=== PATIENT | male | born 2000 | race Caucasian/White ===

== ENCOUNTER 2021-04-03 15:32 | Emergency (ER) | payer BC, SELFPAY ==
--- NOTE | ~2021-04-03 | XR_ITS ---
EXAMINATION: XR chest 1V DATE: 04/03/2021 17:08 INDICATION: Cough. COVID-19 pneumonia. TECHNIQUE: A single frontal view of the chest was obtained. COMPARISON: None. FINDINGS: There are mild airspace opacities in the lower lung zones. No pleural effusion or pneumotho rax. The heart size is normal. IMPRESSION: 1. Mild airspace opacities in the lower lung zones, consistent with pneumonia. Reviewed, dictated and finalized at location A.
[2021-04-03 16:45] VITALS: BP 117/75; PULSE 54; RESP 16; TEMP 36.9; O2SAT 100
--- NOTE | 2021-04-03 16:46 | ECG_ITS ---
Measurements Intervals [place] Rate: 47 P: 67 NV: 155 QRS: 86 QRSD: 92 T: 56 QT: 451 QTc: 400 Interpretive Statements SINUS BRADYCARDIA INCOMPLETE RIGHT BUNDLE BRANCH BLOCK BASELINE ARTIFACT- I, II, AVR, AVL, AVF, V4-V6 ABNORMAL ECG Electronically Signed On 04-03-2021 19:41:33 CDT by Salvador Catalan D.O.
[2021-04-03 17:01] VITALS: O2SAT 98
[2021-04-03 17:03] LABS: Basophils Percent Auto 0.4 % (0.2-1.2); Eosinophils Absolute Auto 0.1 K/mm3 (0-0.3); Eosinophils Percent Auto 2.2 % (0-4.4); Hematocrit 43.9 % (42.0-52.0); Hemoglobin 14.7 g/dL (14.0-18.0); Lymphocytes Absolute Auto 1.32 K/mm3 (0.9-3.2); Lymphocytes Percent Auto 48.9 % (18.3-44.2); Mean Corpuscular HGB Conc 33.5 g/dl (32-36); Mean Corpuscular Hemoglobin 29.8 pg (26-34); Mean Platelet Volume 9.5 fl (7.4-10.4); Monocytes Absolute Auto 0.3 K/mm3 (0.1-0.6); Monocytes Percent Auto 12.6 % (2.6-8.5); Neutrophils Percent Auto 35.9 % (45.5-73.1); Platelet Count Result 181 k/mm3 (150-375); Red Blood Count 4.93 M/mm3 (4.6-6.20); Red Cell Distribution Width 12.3 % (11.5-14.5); White Blood Count 2.7 K/mm3 (4.5-10.0)
[2021-04-03 17:15] LABS: Alanine Aminotransferase 23 U/L (4-50); Albumin Level 4.2 g/dL (3.5-5.1); Alkaline Phosphatase 55 U/L (38-126); Anion Gap 8 mmol/L (8-16); Aspartate Amino Transferase 36 U/L (17-59); Bilirubin,Total 0.5 mg/dL (0.2-1.3); Blood Urea Nitrogen 8 mg/dL (9-20); Calcium 9.1 mg/dL (8.4-10.2); Carbon Dioxide 27 mmol/L (22-30); Chloride 106 mmol/L (98-107); Estimated CRCL calculation 142 ml/min; Estimated Glomerular Filt Rate > 60; Glucose 90 mg/dL (65-110); Potassium 4.4 mmol/L (3.4-5.0); Sodium 141 mmol/L (137-145)
[2021-04-03 18:04] VITALS: BP 122/70; PULSE 57; RESP 20; O2SAT 100
[2021-04-03 20:15] VITALS: BP 124/70; PULSE 58; RESP 18; O2SAT 100
--- NOTE | 2021-04-03 21:12 | ED.GENADULT ---
HPI - General Adult General Chief complaint: Shortness of Breath/Dyspnea Stated complaint: covid positive, chest pain Time Seen by Provider: 04/03/21 17:33 History of Present Illness HPI narrative: Patient 20-year-old gentleman who presents the emergency department with chief complaint of cough and shortness of breath. The patient reports that he was diagnosed with COVID-19 recently and had symptoms starting on Wednesday. Patient states that his father is currently on a ventilator at another hospital and he has history of asthma and was concerned. Patient reports he has a little bit of discomfort in his lower lung lucio. Patient reports symptoms are not improved by anything or they worsened by them. Related Data Allergies Allergy/AdvReac Type Severity Reaction Status Date / Time AMOXICILLIN TRIHYDRATE Allergy Severe MOTTLED Uncoded 04/03/21 18:05 PURPLE RASH POTASSIUM CLAVULANATE Allergy Severe MOTTLED Uncoded 04/03/21 18:05 PURPLE RASH Review of Systems Review of Systems: A 10 system review of systems was completed on the patient and is negative except for what is stated in the HPI. Nursing and ancillary documentation was reviewed. Exam Narrative: GENERAL: Well-appearing, well-nourished, and in no acute distress. HEAD: Normocephalic, atraumatic. EYES: PERRLA and EOMI. ENT: Nares clear, no rhinorrhea or epistaxis. Mucous membranes moist. NECK: Supple. CHEST: Clear to auscultation. No respiratory distress. HEART: Regular rate and rhythm. No murmur heard. Normal peripheral pulses. ABDOMEN: Soft, nontender, nondistended, normal active bowel sounds. EXTREMITIES: Normal range of motion. No edema. SKIN: Warm, dry, no rash. NEURO: No focal deficits. Alert and oriented x3. PSYCH: Normal mood and affect. Course Vital Signs Vital signs: Vital Signs Temperature 36.9 C 04/03/21 16:45 Pulse Rate 54 L 04/03/21 16:45 Respiratory Rate 16 04/03/21 16:45 Blood Pressure 117/75 04/03/21 16:45 Pulse Oximetry 100 04/03/21 16:45 Temperature 36.9 C 04/03/21 16:45 Pulse Rate 58 L 04/03/21 20:15 Respiratory Rate 18 04/03/21 20:15 Blood Pressure 124/70 04/03/21 20:15 Pulse Oximetry 100 04/03/21 20:15 Medical Decision Making Vital Signs Vital Signs: Vital Signs Temperature 36.9 C 04/03/21 16:45 Pulse Rate 54 L 04/03/21 16:45 Respiratory Rate 16 04/03/21 16:45 Blood Pressure 117/75 04/03/21 16:45 Pulse Oximetry 100 04/03/21 16:45 Temperature 36.9 C 04/03/21 16:45 Pulse Rate 58 L 04/03/21 20:15 Respiratory Rate 18 04/03/21 20:15 Blood Pressure 124/70 04/03/21 20:15 Pulse Oximetry 100 04/03/21 20:15 Lab Data Result diagrams: 04/03/21 16:56 04/03/21 16:55 Labs: Lab Results 04/03/21 04/03/21 Range/Units 16:55 16:56 WBC 2.7 L (4.5-10.0) K/mm3 RBC 4.93 (4.6-6.20) M/mm3 Hgb 14.7 (14.0-18.0) g/dL Hct 43.9 (42.0-52.0) % MCV 89.0 (80-100) fl MCH 29.8 (26-34) pg MCHC 33.5 (32-36) g/dl RDW 12.3 (11.5-14.5) % Plt Count 181 (150-375) k/mm3 MPV 9.5 (7.4-10.4) fl Immature Gran % (Auto) 0.0 (0-0.5) % Neut % (Auto) 35.9 L (45.5-73.1) % Lymph % (Auto) 48.9 H (18.3-44.2) % [place] % (Auto) 12.6 H (2.6-8.5) % Eos % (Auto) 2.2 (0-4.4) % Baso % (Auto) 0.4 (0.2-1.2) % Lymph # (Auto) 1.32 (0.9-3.2) K/mm3 [place] # (Auto) 0.3 (0.1-0.6) K/mm3 Eos # (Auto) 0.1 (0-0.3) K/mm3 Baso # (Auto) 0.0 (0.0-0.1) K/mm3 Abs Immat Gran (auto) 0.00 (0.00-0.031) K/mm3 Absolute Neuts (auto) 1.0 L (1.3-6.7) K/mm3 Absolute Nucleated RBC 0.0 (0.0-0.012) K/mm3 Nucleated RBC % 0.0 (0.0-0.2) % Sodium 141 (137-145) mmol/L Potassium 4.4 (3.4-5.0) mmol/L Chloride 106 (98-107) mmol/L Carbon Dioxide 27 (22-30) mmol/L Anion Gap 8 (8-16) mmol/L BUN 8 L (9-20) mg/dL Creatinine 0.70 (0.7-1.3) mg/dL Estim Creat Clear Calc 142 ml/min Estimate
[2021-04-03 21:18] VITALS: BP 126/77; PULSE 88; RESP 18; O2SAT 100
== END 2021-04-03 21:19 | disposition home or self-care (01) ==
PROVIDERS: Emergency Medicine; Emergency Provider Emergency Medicine
DX: U07.1 COVID-19 (principal); J12.82 Pneumonia due to coronavirus disease 2019; J45.909 Unspecified asthma, uncomplicated; R00.1 Bradycardia, unspecified; I45.10 Unspecified right bundle-branch block
CPT/HCPCS: 36415; 71045; 80053; 85025; 93005; 99284

== ENCOUNTER 2021-05-24 13:24 | Outpatient (CLI) | payer BC, SELFPAY ==
--- NOTE | ~2021-05-24 | XR_ITS ---
EXAMINATION: XR chest 2V 05/24/2021 13:48 INDICATION: Asthma. Bronchitis. PROCEDURE: 2 view chest COMPARISON: 04/03/2021 FINDINGS: The lungs are clear. The cardiomediastinal silhouette is within normal limits. There are no pleural effusions. There is no pneumothorax suspected. IMPRESSION: 1: NO ACUTE CARDIOPULMONARY DISEASE. Reviewed, dictated and finalized at location A.
== END 2021-05-24 13:25 | disposition home or self-care (01) ==
LOC: ANHIMG 13:31
PROVIDERS: PCP Family Medicine; Visit Provider Physician Assistant
DX: J45.909 Unspecified asthma, uncomplicated (principal)
CPT/HCPCS: 71046

== ENCOUNTER 2024-10-31 22:27 | Emergency (ER) | payer OTHER, SELFPAY ==
[2024-10-31 22:29] VITALS: BP 133/75; PULSE 56; RESP 16; TEMP 36.4; O2SAT 99
--- OUTSIDE RECORDS SUMMARY | 2024-10-31 22:29 | XMS_ITS | Clinical Summary ---
Author Organization [facility] Address [address] [place] [address] Care Team Providers Care Perennial House Manager Name Role Phone Art Youngblood Primary Care Provider [phone] Source Comments [facility],non-owned Affiliates and Associated Physician Practices is amultiple site organization consisting of ambulatory clinics and hospital sitesin [place], [place], [place] and [place]. This disclosure is being madepursuant to the Care Everywhere program and may not contain all information available regarding this patient. Last updated 18.[facility] [employer] Allergies Active Allergy Reactions Criticality Noted Date Comments Amoxicillin Rash Medium 05/26/2021 Reaction: Rash, Potassium Rash Medium 05/26/2021 Reaction: Rash, Medications * Be aware that medications may not be up to date on this document. Alwaysverify current medications with the patient. Medication Sig Dispensed Refills Start Date End Date Status albuterol HFA (PROVENTIL;VENTOLIN; PROAIR) 108 (90 Base) MCG/ACT inhaler Inhale 2 (two) puffs by mouth as needed 04/04/2021 Active benzonatate (TESSALON) 200 MG capsule TAKE 1 CAPSULE BY MOUTH 3 TIMES A DAY NEEDED 04/04/2021 Active fluticasone-salmeter ol (ADVAIR/WIXELA) 100-50 MCG/DOSE inhaler Inhale 1 (one) puff by mouth 2 times daily 60 Each 3 05/26/2021 Active Additional Information Patient not taking.Reported on 03/04/2023 azithromycin (Zithromax) 250 MG tablet 05/16/2021 Active azithromycin (Zithromax) 500 MG tablet Take 1 (one) tablet by mouth as directed 02/12/2023 Active montelukast (Singulair) 10 MG tablet Take 1 (one) tablet by mouth once daily 09/10/2022 Active predniSONE (Deltasone) 10 MG tablet Take 1 (one) tablet by mouth as directed 05/16/2021 Active fluticasone propionate (Flonase) 50 MCG/ACT nasal spray [place] 2 (two) sprays into each nostril once daily 48 g 5 03/04/2023 Active azelastine (Astelin) 0.1 % nasal spray [place] 1 (one) spray into each nostril 2 times daily 90 mL 5 03/04/2023 Active Additional Information Patient taking differently:1 spray Each NostrilPRN, Reported on 04/08/2023 Active Problems Problem Noted Date Diagnosed Date Shortness of breath 05/26/2021 Immunizations Name Administration Dates Next Due DTaP VACCINE IM (6wk-6yrs) 03/21/2002,,04/19/2001,02/18 HEP B VACCINE, PED/ADOL 06/21/2001,01/07/2001, HIB-HAEMOPHILUS INFLUENZAE B CONJUGATE VACCINE 03/21/2002,04/19/2001,02/18/2001 Human Papilloma Virus Brian valent Vaccine 05/25/2013,01/23/2013,11/15/2012 MENINGOCOCCAL CONJUGATE (MCV4P) 11/15/2012 MMR 01/13/2002 MMR/VARICELLA 12/18/2010 PNEUMOCOCCAL PCV7 CONJ, PEDS 02/19/2002, 06/21/2001,04/19/2001,02/18 POLIO IPV 03/21/2002,04/19/2001,02/18/2001 TDAP (7yrs+) 12/18/2010 VARICELLA 01/13/2002 Social History Tobacco Use Types Packs/Day Years Used Date Smoking Tobacco: Never Smokeless Tobacco: Never Tobacco Cessation:Counseling Given: Not Answered Sex and Gender Information Value Date Recorded Sex Assigned at Not on file Gender Identity Not on file Sexual Orientation Not on file Last Filed Vital Signs Vital Sign Reading Time Taken Comments Blood Pressure 124/72 04/08/2023 7:55 AM CDT Pulse 65 04/08/2023 7:55 AM CDT Temperature 36.2 C (97.1 F) 05/26/2021 2:55 PM CDT Respiratory Rate 16 05/26/2021 2:55 PM CDT Oxygen Saturation 97% 05/26/2021 2:55 PM CDT Inhaled Oxygen Concentration - - Weight 69.9 kg (154 lb) 04/08/2023 7:55 AM CDT Height 180.3 cm (5' 11 ) 04/08/2023 7:55 AM CDT Body Mass Index 21.48 04/08/2023 7:55 AM CDT Plan of Treatment Health Maintenance Due Date Last Done Comments HIV SCREENING 12/15/2015 MENINGOCOCCAL (Group B) VACCINE (1 of 2 - Standard) 2016 HEPATITIS C SCREENING 12/10/2018 DTAP/TDAP/TD VACCINES (6 - Td or Tdap) 12/18/2020 12/18/2010, 03/21/2002, 06/21/2001, Additional history exists COVID-19 VACCINE ( - 2023- season) 2024 INFLUENZA VACCINE (#1) 2024 DEPRESSION SCREENING 08/23/2024 ZOSTER VACCINE (1 of 2) 2050 HEPATITIS B VACCINE Completed 06/21/2001, 01/07/2001, 2000 PNEUMOCOCCAL VACCINE Completed 02/19/2002, 06/21/2001, 04/19/2001, Additional history exists HIB VACCINE Completed 03/21/2002, 03/24, 02/18/2001 MENINGOCOCCAL VACCINE Aged Out 11/15/2012 No abran jennifer eligible based on patient's age to complete this topic HPV VACCINE Completed 05/25/2013, 0610/2012, 11/15/2012 ROSANNE,PENNY Personal/Family Legal Guardian [address] [facility] [address] ROSANNE,PENNY Personal/Family Legal Guardian [address] [place] [address] ROSANNE,PENNY Personal/Family Legal Guardian [address] [facility] [place] [address] ROSANNE,PENNY Personal/Family Legal Guardian [address] [place] [address] ROSANNE,PENNY Personal/Family Legal Guardian [address] [place] [address] ROSANNE,PENNY Personal/Family Legal Guardian [address] [place] [address] Rosanne, Shawn D Personal/Family Self [address] [place] [address] ROSANNE,PENNY Personal/Family Legal Guardian [address] [place] [address] ROSANNE,PENNY Personal/Family Legal Guardian [address] [place] [address] ROSANNE,PENNY Personal/Family Legal Guardian [address] [place] [address] ROSANNE,PENNY Personal/Family Legal Guardian [address] [place] [address] ROSANNE,PENNY Personal/Family Legal Guardian [address] [place] [address] ROSANNE,PENNY Personal/Family Legal Guardian [address] [place] [address] ROSANNE,PENNY Personal/Family Legal Guardian [address] [place] [address] ROSANNE,PENNY Personal/Family Legal Guardian [address] [place] [address] ROSANNE,PENNY Personal/Family Legal Guardian [address] [place] [address] ROSANNE,PENNY Personal/Family Legal Guardian [address] [place] [address] ROSANNE,PENNY Personal/Family Legal Guardian [address] [place] [address] Care Teams Perennial House Manager Relationship Specialty Start Date End Date Art Youngblood PA [address] [place] [phone] PCP - General 05/19/21
--- OUTSIDE RECORDS SUMMARY | 2024-10-31 22:29 | XMS_ITS | Patient Health Summary ---
Author Organization [facility] Address [address] [place] [address] Care Team Providers Care Welfare Interviewer Name Role Phone Art Youngblood Primary Care Provider [phone] Note from [facility],non-owned Affiliates and Associated Physician Practices is amultiple site organization consisting of ambulatory clinics and hospital sitesin [place], [place], [place] and [place]. This disclosure is being madepursuant to the Care Everywhere program and may not contain all information available regarding this patient. Last updated 18.[facility] Allergies * Amoxicillin(Rash) -Medium Criticality * Potassium(Rash) -Medium Criticality Medications * Be aware that medications may not be up to date on this document. Alwaysverify current medications with the patient. * albuterol HFA (PROVENTIL;VENTOLIN;PROAIR) 108 (90 Base) MCG/ACT inhaler (Started 04/04/2021) Inhale 2 (two) puffs by mouth as needed * benzonatate (TESSALON) 200 MG capsule(Started 04/04/2021) TAKE 1 CAPSULE BY MOUTH 3 TIMES A DAY NEEDED * fluticasone-salmeterol (ADVAIR/WIXELA) 100-50 MCG/DOSE inhaler(Started 05/26/2021) Inhale 1 (one) puff by mouth 2 times daily 3 refills by 05/26/2022 * azithromycin (Zithromax) 250 MG tablet(Started 05/16/2021) * azithromycin (Zithromax) 500 MG tablet(Started 02/12/2023) Take 1 (one) tablet by mouth as directed * montelukast (Singulair) 10 MG tablet(Started 09/10/2022) Take 1 (one) tablet by mouth once daily * predniSONE (Deltasone) 10 MG tablet(Started 05/16/2021) Take 1 (one) tablet by mouth as directed * fluticasone propionate (Flonase) 50 MCG/ACT nasal spray(Started 03/04/2023) [place] 2 (two) sprays into each nostril once daily 5 refills by 03/03/2024 * azelastine (Astelin) 0.1 % nasal spray(Started 03/04/2023) [place] 1 (one) spray into each nostril 2 times daily 5 refills by 03/03/2024 Active Problems Problem Noted Date Diagnosed Date Shortness of breath 05/26/2021 Immunizations * DTaP VACCINE IM (6wk-6yrs)(Given 03/21/2002, 06/21/2001, 04/19/2001, 02/18/2001) * HEP B VACCINE, PED/ADOL(Given 06/21/2001, 01/07/2001, 2000) * HIB-HAEMOPHILUS INFLUENZAE B CONJUGATE VACCINE(Given 03/21/2002, 04/19/2001, 02/18/2001) * Human Papilloma Virus Quadrivalent Vaccine(Given 05/25/2013, 01/23/2013, 11/15/2012) * MENINGOCOCCAL CONJUGATE (MCV4P)(Given 11/15/2012) * MMR(Given 01/13/2002) * MMR/VARICELLA(Given 12/18/2010) * PNEUMOCOCCAL PCV7 CONJ, PEDS(Given 02/19/2002, 06/21/2001, 04/19/2001, 02/18/2001) * POLIO IPV(Given 03/21/2002, 04/19/2001, 02/18/2001) * TDAP (7yrs+)(Given 12/18/2010) * VARICELLA(Given 01/13/2002) Social History Tobacco Use Types Packs/Day Years [...] Mass Index 21.48 04/08/2023 7:55 AM CDT Procedures * COMPLETE PFT W/WO BRONCHODILATOR(Performed 08/12/2021) Performed for Shortness of breath Results * COMPLETE PFT W/WO BRONCHODILATOR (08/12/2021 10:22 AM RAILWAY PATROL OFFICER) Impressions Nickolas Black MD - 08/12/2021 10:22 AM RAILWAY PATROL OFFICER [facility] DEPARTMENT OF PULMONARY, CRITICAL CARE, AND SLEEP MEDICINE PULMONARY FUNCTION TESTS Shawn Lay 20 year old BMI 21.5 08/12/2021 INTERPRETATION Please see technologist's comments mentioned above. SPIROMETRY: FEV1/FVC ratio is Normal . FEV1 is Normal. Forced vital capacity is Normal. There is significant response to bronchodilator administration. Inspection of the patient's flow-volume loops shows normal configuration of the inspiratory and expiratory limbs. LUNG VOLUMES: Lung volumes by body plethysmography are within normal limits. DLCO: Diffusing capacity unadjusted for Hb and COHb is within normal limits. AIRWAY RESISTANCE: The airway resistance and the specific conductance are normal. ARTERIAL BLOOD GAS ANALYSIS: not performed. IMPRESSION: 1. Normal Pulmonary Function Test. 2. There is significant response to bronchodilator administration. 3. Normal unadjusted diffusion capacity. Recommend adjusting for Hgb and COHgb if clinically indicated. 4. There is no previous study available for comparison. Dr.Raja Mary Alice PROCTOR Pulmonary & Critical Care Fellow Division of Pulmonary, Critical Care and Sleep Medicine [facility] Pager:[phone] I have reviewed this study and agree with the interpretation by the Natural Gas Technician. Nickolas Black M.D. Manufacturing Job Titles of Internal Medicine Division of Pulmonary, Critical Care and Sleep Medicine [facility] Narrative Nickolas Black MD - 08/12/2021 10:22 AM RAILWAY PATROL OFFICER Glenn Wheat MD 08/12/2021 3:54 PM Vic Reyna MD RESPIRATORY THERAPY ORDERABLES Care Teams Welfare Interviewer Relationship Specialty Start Date End Date Art Youngblood PA [address] [place] [phone] PCP - General 05/19/21
--- OUTSIDE RECORDS SUMMARY | 2024-10-31 22:29 | XMS_ITS | Data Portability ---
Author Organization [facility] [place] Address [address], [place] [address] Care Team Providers Care Email Marketer Name Role Phone WALKER MULLEN Primary Care Provider [phone] Assessment No assessment recorded. Plan of Treatment Reminders Order Date Submit Date Provider Last Modified By Organization Details Last Modified Time Details Appointments None recorded. Lab None recorded. Referral None recorded. Procedures None recorded. Surgeries None recorded. Imaging None recorded. Medication Orders buspirone 5 mg tablet 2023 024 [email or web address] [facility] [id number] [place] [place], [address], 4 12:39:01 azithromyc in 500 mg tablet 2022 023 kclarkma [facility] [facility], [address] [place], [address], 4 14:45:16 albuterol sulfate HFA 90 mcg/actuat ion aerosol inhaler 2022 023 JEROME [facility] [id number] [address] [place], [address], 3 14:33:18 montelukas t 10 mg tablet 2022 023 JEROME [facility], [address] [place], [address], 3 14:33:18 Patient TargetsNo targets recorded. Patient Instructions Encounter Date Encounter Id Patient Instructions Last Modified By Organization Details Last Modified Time 09/10/2022 [id number] A healthy lifestyle: care instructions jnanney Not available 09/10/2022 14:33:16 02/12/2023 [id number] A healthy lifestyle: care instructions jnanney Not available 02/12/2023 12:01:02 Acute Sinusitis: Care Instructions jnanney Not available 02/12/2023 12:00:47 12/23/2023 [id number] A healthy lifestyle: care instructions jnanney Not available 12/23/2023 15:35:18 Reason for Referral None Reported. Problems No Known Problems Procedures Surgical History Date Name Laterality Status Provider Name and Address Organization Details Recorded Time tonsillectomy completed Amber Rossi MA [place] - [facility] 02/12/2023 11:47:19 Imaging Results None recorded. Procedure Notes None recorded. Medical Equipment None Reported. Allergies Allergen ID Allergen Name Allergen Category Reaction Reaction Severity Criticality Documentation Date Start Date Code Code System Note Provider Name and Address Organization Details Recorded Time 255565 Product containin g penicilli n (product) medicatio n Not available Not available Not available 09/10/2022 77146 8001 SNOMED Not Available Not Available Not Available Medications Name Sig Start Date Stop Date Status Note LastModified by Organization Details LastModified Time buspirone 5 mg tablet TAKE 1 TABLET BY MOUTH TWICE A DAY active Not Available Not Available No t Available montelukast 10 mg tablet TAKE 1 TABLET BY MOUTH EVERY DAY active Not Available Not Available No t Available azelastine 137 mcg (0.1 %) nasal spray SPRAY 1 (ONE) SPRAY INTO EACH NOSTRIL 2 TIMES DAILY active Not Available Not Available No t Available albuterol sulfate HFA 90 mcg/actuatio n aerosol inhaler INHALE 2 PUFFS BY MOUTH EVERY 4 HOURS active Not Available Not Available No t Available fluticasone propionate 50 mcg/actuatio n nasal spray,suspen donavan SPRAY 2 SPRAYS INTO EACH NOSTRIL EVERY DAY active Not Available Not Available No t Available azithromycin 500 mg tablet TAKE 1 TABLET BY MOUTH EVERY DAY FOR 3 DAYS 12/22 completed Not Available Not Available Not Available Vitals Date Recorded Body weight Body height Body mass index (BMI) Body temperature Oxygen saturation Oxygen saturation in Arterial blood by Pulse oximetry Heart rate Systolic blood pressure Diastolic blood pressure Provider Name and Address Organization Details Last Updated DateTime 3 70754.0 4 g 180.34 cm 21.2 kg/m2 97.3 [degF] 97 % 97 % 61 /min 140 mm[Hg] 78 mm[Hg] Gali mata MA [facility] 3 14:13:47 Date Recorded Body height Respiratory rate Body mass index (BMI) Body weight Systolic blood pressure Diastolic blood pressure Provider Name and Address Organization Details Last Updated DateTime 3 180.34 cm 16 /min 20.9 kg/m2 94278.5 7 g 120 mm[Hg] 80 mm[Hg] Amber Rossi MA [facility] 3 11:48:20 Date Recorded Body height Body mass index (BMI) Body weight Oxygen saturation Oxygen saturation in Arterial blood by Pulse oximetry Heart rate Systolic blood pressure Diastolic blood pressure Provider Name and Address Organization Details Last Updated DateTime 4 180.34 cm 20.9 kg/m2 24508.8 6 g 97 % 97 % 80 /min 120 mm[Hg] 80 mm[Hg] Ese Beltran MA [facility] 4 14:47:28 Social History Question Answer Notes LastModified by Organizat ion Details LastModified Time Tobacco Smoking Status Never Smoker Gali Rhoades MA null, [facility] 09/10/2022 14:10:47 What Is Your Level Of Alcohol Consumption? None Information not available 09/10/2022 Are You Blind Or Do You Have Difficulty Seeing? Yes Glasses Information not available 09/10/2022 What Is Your Level Of Caffeine Consumption? Heavy Information not available 09/10/2022 Are You Currently Employed? Yes Information not available 09/10/2022 Are You Deaf Or Do You Have Serious Difficulty Hearing? No Information not available 09/10/2022 What Type Of Diet Are You Following? REGULAR Information not available 09/10/2022 What Is Your Occupation? [employer] Information not available 09/10/2022 What Was The Date Of Your Most Recent Tobacco Screening? 12/23/2023 [email or web address] Information not available 12/23/2023 What Is Your Relationship Status? Single Information not available 09/10/2022 Do You Use Your Seat Belt Or Car Seat Routinely? Yes Information not available 09/10/2022 Do You Have Smoke And Carbon Monoxide Detectors In Your Home? Yes Information not available 09/10/2022 Are You Passively Exposed To Smoke? No Information no t available 09/10/2022 Do You Feel Stressed (tense, Restless, Nervous, Or Anxious, Or Unable To Sleep At Night)? [id number] Information not available 09/10/2022 Do You Use Any Illicit Or Recreational Drugs? No Information not available 09/10/2022 Has Tobacco Cessation Counseling Been Provided? No Information not available 09/10/2022 Do You Or Have You Ever Used Any Other Forms Of Tobacco Or Nicotine? No Information not available 09/10/2022 Sex: Male Functional Status Question Answer Note LastModified by Organization D etails LastModified Time Are you able to care for yourself? Yes Information not available 09/10/2022 What is your exercise level? Moderate Information not available 09/10/2022 Mental Status None recorded. Family History Relationship Description Onset Age of this Age Resolved Age Notes LastModified by Organization Details LastModified Time Father No current problems or disability [email or web address] Not available 0 09/10/2022 14:10:23 Mother No current problems or disability [email or web address] Not available 0 09/10/2022 14:10:23 Medical History Condition Response Coronary Artery Disease N Other N Atrial Fibrillation N High Blood Pressure N Thyroid Problems N Kidney or Bladder Problems N Depression N COPD N Blood Clots N GI Problems N Skin Problems N Eating Disorder N Anemia N Heart Attack ([place]) N Diabetes N Anxiety Disorder N Muscle, Joint, or Bone Problems N Seizures/Epilepsy N Acid Reflux (GERD) N Cancer N Stroke N Allergies N Asthma Y ADHD N Substance Abuse N High Cholesterol N Hepatitis N Liver Disease N Schizophrenia N Headaches N Osteoporosis N Heart Failure N Immunizations Vaccine Type Date Status Note Provider Nam e and Address Organization Details Recorded Time Hib, unspecified formulation 1 completed Krystin Avila [place], [place] [facility] 03/23/2023 16:49:39 Hib, unspecified formulation 2 completed [place] [facility] 03/23/2023 16:49:39 Hib, unspecified formulation 1 completed [place] [facility] 03/23/2023 16:49:39 Hib-Hep B 1 [place] [facility] 03/23/2023 16:49:39 IPV 1 [place] [facility] 03/23/2023 16:49:39 IPV 2 completed [place] [facility] 03/23/2023 16:49:39 IPV 1 [place] [facility] 03/23/2023 16:49:39 IPV 5 completed [place] [facility] 03/23/2023 16:49:39 MMR 1 [place] [facility] 03/23/2023 16:49:39 MMR 2 [place] [facility] 03/23/2023 16:49:39 MMR 5 completed [place] [facility] 03/23/2023 16:49:39 pneumococcal conjugate PCV 7 1 [place] [facility] 03/23/2023 16:49:39 pneumococcal conjugate PCV 7 2 completed [place] [facility] 03/23/2023 16:49:39 pneumococcal conjugate PCV 7 1 [place] [facility] 03/23/2023 16:49:39 pneumococcal conjugate PCV 7 1 [place] [facility] 03/23/2023 16:49:39 influenza, unspecified formulation 2 completed [place] [facility] 03/23/2023 16:49:39 Tdap 1 completed Krystin [place] [facility] 03/23/2023 16:49:39 Pneumococcal conjugate PCV 13 2 completed Krystin [place] [facility] 03/23/2023 16:49:39 varicella 1 completed [place]rystin [place] [facility] 03/23/2023 16:49:39 varicella 2 completed Krystin [place] [facility] 03/23/2023 16:49:39 HPV, quadrivalent 3 completed Krystin [place] [facility] 03/23/2023 16:49:39 HPV, quadrivalent 3 completed Krystin [place] [facility] 03/23/2023 16:49:39 HPV, quadrivalent 3 completed Krystin [place] [facility] 03/23/2023 16:49:39 Hep B, adolescent or pediatric 1 completed Krystin [place] [facility] 03/23/2023 16:49:39 Hep B, adolescent or pediatric 1 completed [place]rystin [place] [facility] 03/23/2023 16:49:39 Hep B, adolescent or pediatric 1 completed Krystin [place] [facility] 03/23/2023 16:49:39 Hep B, adolescent or pediatric 5 completed Krystin [place] [facility] 03/23/2023 16:49:39 Hep B, adolescent or pediatric 1 completed Krystin [place] [facility] 03/23/2023 16:49:39 meningococcal MCV4P 3 completed Krystin [place] [facility] 03/23/2023 16:49:40 meningococcal MCV4P 8 completed Krystin [place] [facility] 03/23/2023 16:49:40 DTaP 1 completed [place]rystin [place] [facility] 03/23/2023 16:49:40 DTaP 2 completed [place]rystin [place] [facility] 03/23/2023 16:49:40 DTaP 1 completed [place]rystin [place] [facility] 03/23/2023 16:49:40 DTaP 5 completed Krystin [place]ila [place] [facility] 03/23/2023 16:49:40 DTaP 1 completed Krystin [place] [facility] 03/23/2023 16:49:40 Tdap 3 completed [place] [facility] 04/02/2023 14:30:36 Past Encounters Encounter ID Performer Location Encounter Start Date Encounter Closed Date Diagnosis/Indication Diagnosis SNOMED-CT Code Diagnosis ICD10 Code Diagnosis Note [id number] Walker Mullen PA-C [facility] [address] [place] [address] 09/10/2022 14:01:42 09/14/2022 11:45:00 Mild intermittent asthma 221554649 J45.20 Overweight 501532096 E66 .3 [id number] Walker Mullen PA-C [facility] [address] [place] [address] 02/12/2023 11:41:17 02/15/2023 14:54:14 Acute maxillary sinusitis 28456038 J01.01 Overweight 210877346 E66 .3 [id number] Amber Rossi MA [facility] [address] [place] [address] 04/02/2023 14:21:52 04/06/2023 10:28:12 Active or passive immunization 019532978 Z23 [id number] Walker Mullen PA-C [facility] [address] [place] [address] 12/23/2023 14:36:13 12/29/2023 13:26:56 Mixed anxiety and depressive disorder 312842465 F41.8 Overweight 251943775 E66 .3 Health Concerns Section Related Observation LastModified by Organization Ashley bentley LastModified Time None Recorded Concern Status LastModified by Organization Details LastModified Time None Recorded Advance Directives Directive None Recorded Payers Encounter Date Sequence Insurance Name Policy Number Policy Shultz Covered Member ID Shultz Member ID Guarantor Name 09/10/2022 1 [facility] (MEDICAID HMO) [id number] Shawn Gilbertus [id number] Shawn Rosanne 02/12/2023 1 [facility] (MEDICAID HMO) [id number] Shawn Rosanne [id number] Shawn Rosanne 04/02/2023 1 [facility] (MEDICAID HMO) [id number] Shawn Rosanne [id number] Shawn Rosanne 12/23/2023 1 [facility] (MEDICAID HMO) [id number] Shawn Gilbertus [id number] Shawn Lay Notes Date Note Type Note Provider Name and Address Organization Details Recorded Time 09/10/2022 text/html new patient ...last pcp was his shroudman. The patient says he was sick 2 months ago and is now having dyspnea with exertion and a persistent cough. The patient says he feels congestion in the back of his throat most days. Also says that when he coughs he is spitting up clear, thick sputum. The patient denies any nausea, vomiting, diarrhea, chills, or fever. He says that he has been using his albuterol once in the morning and once at night daily. The patient denies any alcohol, tobacco, or any other illicit substances. Walker Mullen PA-C Attn: [address]ing,[address] [place], [address], [facility] 09/10/2022 14:33:19 02/12/2023 text/html coughing and spi t build up...losing voice...yellow phlegm...no fever...some sinus issues Walker Mullen PA-C Attn: Accounting,[address] [place], [address], [facility] 02/12/2023 12:01:38 12/23/2023 text/html having trouble focusing and trouble sleeping for a month...mom thinks he has ADHD...he thinks it is more school; and work and stress Walker Mullen PA-C Attn: Accounting,[address] [facility], [place], [address], [facility] 12/23/2023 15:37:38
--- OUTSIDE RECORDS SUMMARY | 2024-10-31 22:29 | XMS_ITS | Referral Summary ---
Author Organization [facility] Address [address] [facility] [address] [place] [address] Care Team Providers Care Data Collection Interviewer Name Role Phone Art Youngblood Primary Care Provider [phone] Source Comments [facility],non-owned Affiliates and Associated Physician Practices is amultiple site organization consisting of ambulatory clinics and hospital sitesin [place], [place], [place] and [place]. This disclosure is being madepursuant to the Care Everywhere program and may not contain all information available regarding this patient. Last updated 18.[facility] Allergies Active Allergy Reactions Criticality Noted Date [...] fluticasone propionate (Flonase) 50 MCG/ACT nasal spray [place] 2 (two) sprays into each nostril once daily 48 g 5 03/04/2023 Active azelastine (Astelin) 0.1 % nasal spray [place] 1 (one) spray into each nostril 2 [...] 04/08/2023 7:55 AM CDT Plan of Treatment Not on file ROSANNE,PENNY Personal/Family Legal Guardian [address] [place] [address] ROSANNE,PENNY Personal/Family Legal Guardian [address] [place] [address] ROSANNE,PENNY Personal/Family Legal Guardian [address] [place] [address] ROSANNE,PENNY Personal/Family Legal Guardian [address] [place] [address] ROSANNE,PENNY Personal/Family Legal Guardian [address] [place] [address] Rosanne, Shawn D Personal/Family Self [address] [place] [address] ROSANNE,PENNY Personal/Family Legal Guardian [address] [place] [address] ROSANNE,PENYN Personal/Family Legal Guardian [address] [place] [address] ROSANNE,PENNY Personal/Family Legal Guardian [address] [place] [address] ROSANNE,PENNY Personal/Family Legal Guardian [address] [place] [address] ROSANNE,PENNY Personal/Family Legal Guardian [address] [place] [address] ROSANNE,PENNY Personal/Family Legal Guardian [address] [place] [address] ROSANNE,PENNY Personal/Family Legal Guardian [address] [place] [address] ROSANNE,PENNY Personal/Family Legal Guardian [address] [place] [address] ROSANNE,PENNY Personal/Family Legal Guardian [address] [place] [address] ROSANNE,PENNY Personal/Family Legal Guardian [address] [place] [address] ROSANNE,PENNY Personal/Family Legal Guardian [address] [place] [address] Care Teams Data Collection Interviewer Relationship Specialty Start Date End Date Art Youngblood PA [address] [place] [address] PCP - General 05/19/21
--- NOTE | 2024-10-31 23:53 | ED.EYEPROB ---
HPI - Eye Problem General Chief complaint: Eye Problems Stated complaint: contact stuck in R eye Time Seen by Provider: 10/31/24 23:39 Source: patient Mode of arrival: ambulatory Limitations: no limitations History of Present Illness HPI Narrative: This is a 23-year-old male who presents to the ED for chief complaint of contact stuck in the right eye. States this is his 1st day using contacts. He normally wears glasses. Reports he had been trying to get the contact out for over an hour. Just before I arrived, patient was able to fully remove the contact and he is now feeling better. Does report redness and irritation to the eye. Denies vision loss Related Data Allergies Allergy/AdvReac Type Severity Reaction Status Date / Time AMOXICILLIN TRIHYDRATE Allergy Severe MOTTLED Uncoded 10/31/24 22:32 PURPLE RASH POTASSIUM CLAVULANATE Allergy Severe MOTTLED Uncoded 10/31/24 22:32 PURPLE RASH Review of Systems Review of Systems: All systems as dictated in HPI Exam Narrative: GENERAL: Well-appearing, well-nourished, and in no acute distress. HEAD: Normocephalic, atraumatic. EYES: Right eye with conjunctival injection. No drainage. Negative Lenny sign with Wood's lamp. No corneal abrasions noted. PERRLA and EOMI. SKIN: Warm, dry, no rash. NEURO: Alert and oriented x4. No focal deficits. PSYCH: Normal mood and affect. Course Vital Signs Vital signs: Vital Signs Temperature 97.5 F L 10/31/24 22:29 Pulse Rate 56 L 10/31/24 22:29 Respiratory Rate 16 10/31/24 22:29 Blood Pressure 133/75 10/31/24 22:29 Pulse Oximetry 99 10/31/24 22:29 Oxygen Delivery Room Air 10/31/24 22:29 Temperature 97.5 F L 10/31/24 22:29 Pulse Rate 56 L 10/31/24 22:29 Respiratory Rate 16 10/31/24 22:29 Blood Pressure 133/75 10/31/24 22:29 Pulse Oximetry 99 10/31/24 22:29 Oxygen Delivery Room Air 10/31/24 22:29 MDM - Eye Problem MDM Narrative Medical decision making narrative: This is a 23-year-old male who presents to the ED for chief complaint of right eye contact being stuck. Prior to my arrival for interview but, patient was able to remove his contact. Eye exam does show conjunctiva injection as expected but no other emergent findings. No corneal abrasion with Wood's lamp exam no Lenny sign. Patient will be discharged in stable condition. Supportive measures discussed and return precautions given. Patient is understanding and agreeable with plan for discharge with PCP follow-up. Discharge Plan Discharge Clinical Impression: Encounter for medical screening examination Patient Disposition: Home, Self-Care Condition: Stable Instructions: Antibiotic Form Additional Instructions: Your exam today was reassuring. No scratch to the cornea. Please continue using contacts as prescribed and follow-up with your eye doctor. If you have any new or worsening symptoms please return to the ER for further evaluation. Patient Language: Vietnamese Prescriptions: No Action benzonatate 200 mg capsule 200 mg PO TID PRN (Reason: cough) Qty: 21 0RF albuterol sulfate 90 mcg/actuation HFA aerosol inhaler 2 puff inhalation QID PRN (Reason: shortness of breath or wheezing) Qty: 8.5 0RF Follow-up/Referrals: Joselyn,MD Rojas [Primary Care Provider] - Time of Disposition: 00:04
[2024-10-31] MEDS: TETRACAINE HCL 0.5% OPHTH SOLN 4 ML BTL 1 DROP EACH EYE (23:55)
--- OUTSIDE RECORDS SUMMARY | 2024-11-01 00:06 | XMS_ITS | Referral Summary ---
Author Organization [facility] Address [address] [place] [address] Care Team Providers Care Assistant Federal Public Defender Name Role Phone Art Youngblood Primary Care Provider [phone] Source Comments [facility],non-owned Affiliates and Associated Physician Practices is amultiple site organization consisting of ambulatory clinics and hospital sitesin [place], [place], [place] and [place]. This disclosure is being madepursuant to the [...] fluticasone propionate (Flonase) 50 MCG/ACT nasal spray [place] 2 (two) sprays into each nostril once daily 48 g 5 03/04/2023 Active azelastine (Astelin) 0.1 % nasal spray [place] 1 (one) spray into each nostril 2 [...] file ROSANNE,PENNY Personal/Family Legal Guardian [address] [place] [address] ROSANNE,PENNY Personal/Family Legal Guardian [address] [place] [address] ROSANNE,PENNY Personal/Family Legal Guardian [address] [place] [address] ROSANNE,PENNY Personal/Family Legal Guardian [address] [place] [address] ROSANNE,PENNY Personal/Family Legal Guardian [address] [place] [address] Rosanne, Shawn D Personal/Family Self [address] [place] [address] ROSANNE,PENNY Personal/Family Legal Guardian [address] [place] [address] ROSANNE,PENNY Personal/Family Legal Guardian [address] [place] [address] ROSANNE,PENNY Personal/Family Legal Guardian [address] [place] [address] ROSANNE,PENNY Personal/Family Legal Guardian [address] [place] [address] ROSANNE,PENNY Personal/Family Legal Guardian [address] [place] [address] ROSANNE,PENNY Personal/Family Legal Guardian [address] [place] [address] ROSANNE,PENNY Personal/Family Legal Guardian [address] [place] [address] ROSANNE,PENNY Personal/Family Legal Guardian [address] [place] [address] ROSANNE,PENNY Personal/Family Legal Guardian [address] [place] [address] ROSANNE,PENNY Personal/Family Legal Guardian [address] [place] [address] ROSANNE,PENNY Personal/Family Legal Guardian [address] [place] [address] Care Teams Assistant Federal Public Defender Relationship Specialty Start Date End Date Art Youngblood PA [address] [place] [address] PCP - General 05/19/21
--- OUTSIDE RECORDS SUMMARY | 2024-11-01 00:06 | XMS_ITS | Clinical Summary ---
Author Organization [facility] Address [address] [place] [address] Care Team Providers Care Shop Blacksmith Name Role Phone Art Youngblood Primary Care Provider [phone] Source Comments [facility],non-owned Affiliates and Associated Physician Practices is amultiple site organization consisting of ambulatory clinics and hospital sitesin [place], [place], [place] and [place]. This disclosure is being madepursuant to the Care Everywhere program and may not contain all information available regarding this patient. Last updated 18.[facility] [employer] Allergies Active Allergy Reactions Criticality Noted Date [...] fluticasone propionate (Flonase) 50 MCG/ACT nasal spray [place] 2 (two) sprays into each nostril once daily 48 g 5 03/04/2023 Active azelastine (Astelin) 0.1 % nasal spray [place] 1 (one) spray into each nostril 2 [...] 11/15/2012 ROSANNE,PENNY Personal/Family Legal Guardian [address] [place] [address] ROSANNE,PENNY Personal/Family Legal Guardian [address] [place] [address] ROSANNE,PENNY Personal/Family Legal Guardian [address] [place] [address] ROSANNE,PENNY Personal/Family Legal Guardian [address] [place] [address] ROSANNE,PENNY Personal/Family Legal Guardian [address] [place] [address] ROSANNE,PENNY Personal/Family Legal Guardian [address] [place] [address] Rosanne, Shawn D Personal/Family Self [address] [place] [address] ROSANNE,PENNY Personal/Family Legal Guardian [address] [place] [address] ROSANNE,PENNY Personal/Family Legal Guardian [address] [place] [address] ROSANNE,PENNY Personal/Family Legal Guardian [address] [place] [address] ROSANNE,PENNY Personal/Family Legal Guardian [address] [place] [address] ROSANNE,PENNY Personal/Family Legal Guardian [address] [place] [address] ROSANNE,PENNY Personal/Family Legal Guardian [address] [place] [address] ROSANNE,PENNY Personal/Family Legal Guardian [address] [place] [address] ROSANNE,PENNY Personal/Family Legal Guardian [address] [place] [address] ROSANNE,PENNY Personal/Family Legal Guardian [address] [place] [address] ROSANNE,PENNY Personal/Family Legal Guardian [address] [place] [address] ROSANNE,PENNY Personal/Family Legal Guardian [address] [place] [address] Care Teams Shop Blacksmith Relationship Specialty Start Date End Date Art Youngblood PA [address] [place] [address] PCP - General 05/19/21
--- OUTSIDE RECORDS SUMMARY | 2024-11-01 00:06 | XMS_ITS | Patient Health Summary ---
Author Organization [facility] Address [address] [place] [address] Care Team Providers Care [place] Welter Name Role Phone Art Youngblood Primary Care Provider [phone] Note from [facility],non-owned Affiliates and Associated Physician Practices is amultiple site organization consisting of ambulatory clinics and hospital sitesin [place], [place], [place] and [place]. This disclosure is being madepursuant to the Care Everywhere program and may not contain all information available regarding this patient. Last updated 18.[facility] Allergies * Amoxicillin(Rash) -Medium Criticality * [...] propionate (Flonase) 50 MCG/ACT nasal spray(Started 03/04/2023) [place] 2 (two) sprays into each nostril once daily 5 refills by 03/03/2024 * azelastine (Astelin) 0.1 % nasal spray(Started 03/04/2023) [place] 1 (one) spray into each nostril 2 [...] COMPLETE PFT W/WO BRONCHODILATOR (08/12/2021 10:22 AM CIRCUS ROUSTABOUT) Impressions Nickolas Black MD - 08/12/2021 10:22 AM CIRCUS ROUSTABOUT [facility] DEPARTMENT OF PULMONARY, CRITICAL CARE, AND SLEEP [...] of Pulmonary, Critical Care and Sleep Medicine [facility] Pager:[phone] I have reviewed this study and agree with the interpretation by the Community Health Nurse. Nickolas Black M.D. Clinic Supervisor of Internal Medicine Division of Pulmonary, Critical Care and Sleep Medicine [facility] Narrative Nickolas Black MD - 08/12/2021 10:22 AM CIRCUS ROUSTABOUT Glenn Wheat MD 08/12/2021 3:54 PM Vic Reyna MD RESPIRATORY THERAPY ORDERABLES Care Teams [employer] Welter Relationship Specialty Start Date End Date Art Youngblood PA [address] [place] [id number] PCP - General 05/19/21
== END 2024-11-01 00:12 | disposition home or self-care (01) ==
PROVIDERS: Emergency Provider Physician Assistant; PCP Family Medicine
DX: H57.11 Ocular pain, right eye (principal)
CPT/HCPCS: 99283